=== PATIENT | male | born 1960 | race Caucasian/White ===

== ENCOUNTER 2022-02-20 14:08 | Inpatient (IN) | payer OTHER ==
[~2022-02-20] VITALS: Ht 175.3 cm; Wt 89.4 kg
[~2022-02-20 14:08] MED LIST: ASPIRIN CHEWABL81 MG PO; ASPIRIN EC81 MG PO; ATORVASTATIN CA20 MG PO; CARVEDILOL12.5 MG PO; CLOPIDOGREL75 MG PO; COREG 25MG TAB25 MG PO; DULERA 100 MCG8.8 GM INH; FLUZONE QU60 MCG/015 IM; FUROSEMIDE40 MG PO; IMDUR ER TAB 6060 MG PO; LASIX TAB 20 MG20 MG PO; LASIX40 MG PO; LEVAQUIN750 MG PO; LEVOFLOXACIN250 MG PO; LIPITOR TAB 1010 MG PO; LISINOPRIL10 MG PO; LISINOPRIL5 MG PO; MEDROL DOSEPAK 24 MG PO; NEURONTIN 400400 MG PO; NITROGLYCERIN0.4 MG SL; NITROSTAT0.4 MG SL; PLAVIX 75 MG TA75 MG PO; PRINIVIL20 MG PO; VENTOLIN HFA 66.7 GM INH
[2022-02-20] MEDS ORDERED: BUMETANIDE1 MG PO (17:30)
[2022-02-20] MEDS ORDERED: DIGOX125 MCG PO (17:30)
[2022-02-20] MEDS ORDERED: ALPRAZOLAM0.5 MG PO (17:30)
[2022-02-20] MEDS ORDERED: PROAIR HFA8.5 GM INH (17:31)
[2022-02-20] MEDS ORDERED: CARVEDILOL25 MG PO (17:31)
[2022-02-20] MEDS ORDERED: DILTIAZEM 24HR120 M1 PO (17:31)
[2022-02-20] MEDS ORDERED: ENTRESTO 24 MG1 EACH PO (17:32)
[2022-02-20] MEDS ORDERED: SPIRONOLACTONE25 MG PO (17:32)
[2022-02-20] MEDS ORDERED: CLOPIDOGREL75 MG PO (17:32)
[2022-02-20 19:18] LABS: HEMOGLOBIN 10.5 gm/dl (14.0-17.5); RED BLOOD COUNT 4.16 M/UL (4.20-5.50); WHITE BLOOD COUNT 6.6 K/UL (4.5-11.0)
[2022-02-21 06:14] LABS: HEMOGLOBIN 9.9 gm/dl (14.0-17.5); WHITE BLOOD COUNT 6.1 K/UL (4.5-11.0)
[2022-02-22 02:30] LABS: HEMOGLOBIN 9.6 gm/dl (14.0-17.5); RED BLOOD COUNT 3.87 M/UL (4.20-5.50); WHITE BLOOD COUNT 7.2 K/UL (4.5-11.0)
[2022-02-23 02:03] LABS: HEMOGLOBIN 9.2 gm/dl (14.0-17.5); RED BLOOD COUNT 3.67 M/UL (4.20-5.50); WHITE BLOOD COUNT 7.2 K/UL (4.5-11.0)
[2022-02-23 11:12] LABS: COMPLEMENT C3, SERUM 112 mg/dL (82-167); COMPLEMENT C4, SERUM 23 mg/dL (12-38)
[2022-02-23 12:13] LABS: CREATININE, URINE 60.5 mg/dL (Not Estab.)
[2022-02-23 13:13] LABS: ANTI-DSDNA ANTIBODIES 2 IU/mL (0-9)
[2022-02-23 15:13] LABS: A/G RATIO 1.2 (0.7-1.7); ALBUMIN 3.1 g/dL (2.9-4.4); ALPHA-1-GLOBULIN 0.3 g/dL (0.0-0.4); ALPHA-2-GLOBULIN 0.8 g/dL (0.4-1.0); BETA GLOBULIN 0.9 g/dL (0.7-1.3); GAMMA GLOBULIN 0.7 g/dL (0.4-1.8); GLOBULIN, TOTAL 2.7 g/dL (2.2-3.9); IMMUNOGLOBULIN A, QN, SERUM 303 mg/dL (61-437); IMMUNOGLOBULIN G, QN, SERUM 748 mg/dL (603-1613); IMMUNOGLOBULIN M, QN, SERUM 63 mg/dL (20-172); M-SPIKE Not Observed g/dL (Not Observed); PROTEIN, TOTAL, SERUM 5.8 g/dL (6.0-8.5)
[2022-02-24 21:12] LABS: ANTIMYELOPEROXIDASE (MPO) ABS <0.2 units (0.0-0.9); ANTIPROTEINASE 3 (PR-3) ABS <0.2 units (0.0-0.9); ATYPICAL PANCA <1:20 titer (Neg:<1:20); CYTOPLASMIC (C-ANCA) <1:20 titer (Neg:<1:20); PERINUCLEAR (P-ANCA) <1:20 titer (Neg:<1:20)
--- NOTE | 2022-02-25 11:43 | NUR ---
ALLEYVAN DRESSINGS TO R CARMONA AND L KNEE CHANGED. NAD, VSS, PT ASSISTED BACK TO BED.
[2022-02-25 16:12] LABS: HBSAG SCREEN Negative (Negative); HCV AB >11.0 (0.0-0.9); HEP A AB, IGM Negative (Negative); HEP B CORE AB, IGM Negative (Negative); HEPATITIS C QUANTITATION 1000000 IU/mL (.)
[2022-03-02 02:35] LABS: HEMOGLOBIN 8.9 gm/dl (14.0-17.5); RED BLOOD COUNT 3.58 M/UL (4.20-5.50); WHITE BLOOD COUNT 4.7 K/UL (4.5-11.0)
[2022-03-03 01:06] LABS: QUANTIFERON MITOGEN VALUE >10.00 IU/mL (.); QUANTIFERON NIL VALUE 0.42 IU/mL (.); QUANTIFERON TB1 AG VALUE 0.29 IU/mL (.); QUANTIFERON TB2 AG VALUE 0.26 IU/mL (.); QUANTIFERON-TB GOLD PLUS Negative (Negative)
[2022-03-03 02:36] LABS: HEMOGLOBIN 8.9 gm/dl (14.0-17.5); RED BLOOD COUNT 3.57 M/UL (4.20-5.50); WHITE BLOOD COUNT 4.5 K/UL (4.5-11.0)
--- NOTE | 2022-03-03 04:29 | NUR ---
UPON ARRIVAL TO THE FLOOR AT THE BEGINNING OF SHIFT, I NOTICED THE DOBUTAMINE DRIP HAD BEEN TURNED OFF SOMETIME DURING THE DAYSHIFT. LATER IN THE SHIFT, AFTER LOOKING THROUGH THE CHART, I COULD NOT FIND A NOTE FROM NEPHRO OR CARDIOLOGY REGARDING TURNING OFF THIS MEDICATION AND IN FACT, A PROGRESS NOTE HAD BEEN WRITTEN 03/02/22 INDICATING THE DRIP WAS STILL RUNNING. CONTACTED PHARMACY AND WAS INFORMED THAT THE SAFEST COURSE OF ACTION WAS TO CALL THE PHYSICIAN WHO ORDERED THE MEDICATION TO VERIFY THAT IT SHOULD NO LONGER BE RUNNING. CONTACTED DR. HERNDON AND WAS TOLD NOT TO CALL ANYONE AT 0400 TO SATISFY MY CURIOSITY TO WHY A DRIP WAS TURNED OFF "TWO DAYS AGO" (IT WAS STILL RUNNING WHEN I LEFT THE MORNING OF 03/02) UNLESS THE PATIENT WAS CODING. PATIENT IS CURRENTLY RESTING IN BED, BRADYCARDIC (WHICH WAS RELAYED TO DR HERNDON) BUT OTHERWISE STABLE.
[2022-03-04 02:14] LABS: HEMOGLOBIN 9.2 gm/dl (14.0-17.5); RED BLOOD COUNT 3.68 M/UL (4.20-5.50); WHITE BLOOD COUNT 5.5 K/UL (4.5-11.0)
[2022-03-05 06:39] LABS: HEMOGLOBIN 8.8 gm/dl (14.0-17.5); RED BLOOD COUNT 3.53 M/UL (4.20-5.50); WHITE BLOOD COUNT 6.5 K/UL (4.5-11.0)
[2022-03-06 06:23] LABS: HEMOGLOBIN 8.6 gm/dl (14.0-17.5); RED BLOOD COUNT 3.39 M/UL (4.20-5.50)
[2022-03-06 06:27] LABS: WHITE BLOOD COUNT 8.4 K/UL (4.5-11.0)
[2022-03-07 05:53] LABS: HEMOGLOBIN 8.6 gm/dl (14.0-17.5); RED BLOOD COUNT 3.41 M/UL (4.20-5.50); WHITE BLOOD COUNT 7.6 K/UL (4.5-11.0)
[2022-03-08 07:00] LABS: HEMOGLOBIN 8.5 gm/dl (14.0-17.5); RED BLOOD COUNT 3.3 M/UL (4.20-5.50)
--- NOTE | 2022-03-08 07:54 | NUR ---
UPON COMPLETING MORNING CHART REVIEW, AN ORDER FOR BUMEX 1.5MG PO QD THAT WAS WRITTEN ON 03/07/22 WAS NOT SCANNED TO PHARMACY. VERIFIED MEDICATION WAS NOT ON EMAR, VERIFIED WITH PO ANSARI RN WHAT STEPS NEEDED TO TAKE PLACE. CONTACTED DR. BARAHONA WHO STATED MEDCIATION STILL NEEDED TO BE GIVEN, SCANNED ORDER TO PHARMACY AND CONTACTED PHARMACIST JUAN WHO STATED THE ORDER HAD BEEN VERIFIED AND WAS IN [facility]. SYSTEM WOULD NOT ALLOW A IRIS REPORT TO BE COMPLETED.
[2022-03-09 06:31] LABS: HEMOGLOBIN 8.3 gm/dl (14.0-17.5); RED BLOOD COUNT 3.25 M/UL (4.20-5.50); WHITE BLOOD COUNT 6.1 K/UL (4.5-11.0)
[2022-03-10 06:28] LABS: HEMOGLOBIN 7.8 gm/dl (14.0-17.5); RED BLOOD COUNT 3.07 M/UL (4.20-5.50); WHITE BLOOD COUNT 6.5 K/UL (4.5-11.0)
[2022-03-10] MEDS ORDERED: ATORVASTATIN CA20 MG PO (14:38)
[2022-03-10] MEDS ORDERED: BUMETANIDE1 MG PO (14:38)
[2022-03-10] MEDS ORDERED: ASPIRIN EC81 MG PO (14:38)
[2022-03-10] MEDS ORDERED: FERROUS SULFAT325 M2 PO (14:38)
[2022-03-10] MEDS ORDERED: CARVEDILOL25 MG PO (14:38)
--- NOTE | 2022-03-10 15:37 | NUR ---
ATTEMPTED TO DISCHARGE PATIENT DURING TEACHING, PATIENT STATES, "I AM NOT READY FOR DISCHARGE. I FEEL WORSE THEN WHAT I DID WHEN I CAME IN HERE. HOW AM I GOING TO GO HOME WITHOUT PAIN MEDICATION. IM HURTING ALL OVER. I NEED XANAX. HOW AM I GOING TO GO HOME AND JUST LAY THERE FOR A WEEK UNTIL MY APPOINTMENT WITHOUT PAIN MEDICATION." I EXPLAINED TO THE PATIENT THAT I WOULD CALL DR LEONARDO FOR HIM TO COME BACK IN AND SPEAK WITH HIM. PATIENT THEN STATED THAT "THE DOCTOR THAT CAME IN HERE TO SPEAK WITH ME ABOUT MY HEART I COULD NOT UNDERSTAND BECAUSE I DONT SPEAK HER LANGUAGE" I TOLD THE PATIENT THAT I WOULD GIVE A CALL AND EXPLAIN THIS TO HIM. PATIENT AGREES FOR DISCHARGE IF HE CAN HAVE PAIN MEDICATION CALLED IN.
[2022-03-10] MEDS ORDERED: TRAMADOL HCL50 MG PO (16:34)
--- NOTE | 2022-03-10 17:25 | NUR ---
PATIENT AT NURSING STATION STATING HE CALLED THE PHARAMCY AND WE HAVE BEEN LYING TO HIM NO PAIN MEDICATION HAD BEEN CALLED IN. THE PHARMACY THAT HE USES, HIS COUSIN OWNS. HE IS REQUESTING XANAX NOW. DR LEONARDO NOTIFIED. DR LEONARDO REFUSED A SCRIPT FOR XANAX, HE STATED HE WOULD LIKE THE PATIENT TO SEE HIS PCP FOR THAT. HE HAS CALLED IN A SCRIPT FOR TRAMADOL. PATIENT STATES, TRAMADOL DOES NOTHING FOR HIM. HE DID NOT AGREE TO TRAMADOL A PAIN MEDICATION.
== END 2022-03-10 17:38 | disposition home or self-care (01) | DRG 280 ==
LOC: CCU 14:08 → PROG CARE 16:13 → MED SURG 4 16:13 → PROG CARE 02-21 19:37 → MED SURG 4 03-04 20:26
PROVIDERS: Internal Medicine; Internal Medicine Nephrology; ADMIT Internal Medicine
PROC: B24BZZZ Ultrasonography of Heart with Aorta (ICD-10-PCS; principal; 2022-02-21)
DX: I13.0 Hypertensive heart and chronic kidney disease with heart failure and stage 1 through stage 4 chronic kidney disease, or unspecified chronic kidney disease (principal); I21.4 Non-ST elevation (NSTEMI) myocardial infarction; I50.43 Acute on chronic combined systolic (congestive) and diastolic (congestive) heart failure; J96.21 Acute and chronic respiratory failure with hypoxia; N17.0 Acute kidney failure with tubular necrosis; I47.2 Ventricular tachycardia; N39.0 Urinary tract infection, site not specified; E87.1 Hypo-osmolality and hyponatremia; E87.2 Acidosis; Z20.822 Contact with and (suspected) exposure to COVID-19; I45.10 Unspecified right bundle-branch block; E83.42 Hypomagnesemia; D63.1 Anemia in chronic kidney disease; G89.4 Chronic pain syndrome; N18.32 Chronic kidney disease, stage 3b; I25.10 Atherosclerotic heart disease of native coronary artery without angina pectoris; J44.9 Chronic obstructive pulmonary disease, unspecified; E78.5 Hyperlipidemia, unspecified; I08.1 Rheumatic disorders of both mitral and tricuspid valves; I71.4 Abdominal aortic aneurysm, without rupture; E66.9 Obesity, unspecified; G47.33 Obstructive sleep apnea (adult) (pediatric); I71.2 Thoracic aortic aneurysm, without rupture; F15.10 Other stimulant abuse, uncomplicated; Z95.1 Presence of aortocoronary bypass graft; Z79.01 Long term (current) use of anticoagulants; Z79.82 Long term (current) use of aspirin; Z95.5 Presence of coronary angioplasty implant and graft; Z88.5 Allergy status to narcotic agent; Z88.0 Allergy status to penicillin; Z90.49 Acquired absence of other specified parts of digestive tract; Z76.5 Malingerer [conscious simulation]; Z82.49 Family history of ischemic heart disease and other diseases of the circulatory system; Z87.891 Personal history of nicotine dependence; Z81.1 Family history of alcohol abuse and dependence; Z82.3 Family history of stroke; Z83.3 Family history of diabetes mellitus; Z80.1 Family history of malignant neoplasm of trachea, bronchus and lung
CPT/HCPCS: ECHO; 36415; 36600; 71045; 71046; 78452; 80048; 80053; 80074; 80162; 80307; 81001; 82043; 82550; 82553; 82570; 82728; 82784; 82803; 83036; 83520; 83540; 83550; 83735; 83880; 84155; 84156; 84165; 84484; 85025; 85027; 86038; 86140; 86160; 86225; 86256; 86334; 87086; 93005; 93017; 93270; 93306; 93971; 94640; 94760; 97116; 97161; 97164; 97165; 97530; A6212; A9502; J0696; J1120; J1250; J1644; J1650; J1756; J1940; J2405; J2785; J7030